=== PATIENT | male | born 1965 | race Two or more races ===

== ENCOUNTER 2021-10-28 21:00 | Inpatient (IN) | payer OTHER ==
[~2021-10-28] VITALS: Ht 152.4 cm; Wt 79.9 kg
[~2021-10-28 21:00] MED LIST: AMLO-258 PO; GABA-1181 PO; METF-1211 PO
[2021-10-28] MEDS ORDERED: 0.9% SODIUM CHLORIDE 10 ML SYRINGE IVP PRN (23:15)
[2021-10-28 23:36] LABS: GLUCOSE,POINT OF CARE 149 MG/DL (70-110)
[2021-10-28 23:37] LABS: BASOPHILS % (AUTO) 0.3 % (0.0-2.0); EOSINOPHILS % (AUTO) 1.9 % (1.0-6.0); HEMATOCRIT 41.9 % (41-53); LYMPHOCYTES # (AUTO) 2.6 K/uL (1.0-4.8); MEAN CORPUSCULAR HGB CONC 33.5 G/dL (31.0-37.0); MEAN CORPUSCULAR VOLUME 83 fL (80-100); MONOCYTES # (AUTO) 0.6 K/uL (0.1-1.0); MONOCYTES % (AUTO) 6.2 % (2.0-9.0); NEUTROPHILS # (AUTO) 6.6 K/uL (1.8-7.7); NEUTROPHILS % (AUTO) 65.6 % (40.0-70.0); PLATELET COUNT (AUTO) 279 K/uL (150-450); RED BLOOD CELL COUNT(AUTO) 5.02 MIL/uL (4.50-5.90); RED CELL DISTRIBUTION WIDTH 14.1 % (11.5-14.5)
[2021-10-28 23:47] LABS: ANION GAP 12 mmol/L (8-16); CALCIUM, TOTAL 8.7 mg/dL (8.8-10.5); CARBON DIOXIDE 21 mmol/L (22-29); CHLORIDE 107 mmol/L (98-107); CREATININE 1.15 mg/dL (0.60-1.30); GLUCOSE,RANDOM 171 mg/dL (70-110); POTASSIUM 3.9 mmol/L (3.5-5.1); SODIUM SERUM 140 mmol/L (136-145); UREA NITROGEN, BLOOD 19 mg/dL (7-18)
[2021-10-28 23:50] LABS: COVID AG,FIA SOURCE NASAL SWAB
[2021-10-28 23:51] LABS: GLOMERULAR FILTR. RATE CALC 55 mL/min (>60)
[2021-10-28 23:52] LABS: PROTHROMBIN TIME 10.9 SEC (9.4-11.6)
[2021-10-28 23:53] LABS: ALANINE AMINOTRANSFERASE 30 U/L (12-78); ALBUMIN 2.8 g/dL (3.4-5.0); ALKALINE PHOSPHATASE 71 U/L (46-116); ASPARTATE AMINOTRANSFERASE 17 U/L (15-37); BILIRUBIN,TOTAL 0.3 mg/dL (0.1-1.0); CREATINE KINASE, TOTAL ONLY 50 U/L (39-308); TOTAL PROTEIN, SERUM 6.7 g/dL (6.4-8.2)
[2021-10-28 23:54] LABS: B-TYPE NATRIURETIC PEPTIDE 40 pg/mL (0-100)
[2021-10-29] MEDS ORDERED: LORazepam 1 MG TABLET PO ONE
[2021-10-29 00:02] LABS: LACTIC ACID 0.7 mmol/L (0.4-2.0)
[2021-10-29 01:02] LABS: THYROID STIMULATING HORMONE 1.12 uIU/mL (0.36-3.74)
[2021-10-29] MEDS ORDERED: SODIUM CHLORIDE 0.9% 1,000 ML IV ONE (01:15)
[2021-10-29] MEDS ORDERED: ONDANSETRON HCL 4 MG/2 ML VIAL IVP PRN (04:00)
[2021-10-29] MEDS: HydrALAZINE HCL 20 MG/ML VIAL IVP PRN ×2 (08:10→14:37)
[2021-10-29] MEDS: HEPARIN SODIUM,PORCINE 5,000 UNITS/ML VIAL SQ SCH ×2 (08:14→16:33)
[2021-10-29] MEDS ORDERED: CloNIDine 0.2 MG/24 HOUR PATCH TD ONE (12:15)
[2021-10-29] MEDS ORDERED: AmLODIPine BESYLATE 10 MG TABLET PO ONE (14:45)
[2021-10-29] MEDS ORDERED: DEXTROSE 50%-WATER 25 GM/50 ML SYRINGE IVP PRN (14:45)
[2021-10-29 16:40] VITALS: BP 150/91
[2021-10-29] MEDS ORDERED: PNEUMOCOCCAL VACCINE POLYVALENT 0.5 ML VIAL [PPSV23] IM. ONE (17:15)
[2021-10-29] MEDS: INSULIN LISPRO 100 UNITS/ML SQ PRN (17:53)
[2021-10-29] MEDS: MetFORMIN HCL 500 MG TABLET PO SCH (20:12)
[2021-10-29 20:49] VITALS: BP 163/96
[2021-10-29] MEDS: LABETALOL HCL 100 MG TABLET PO SCH (21:18)
[2021-10-29 23:05] VITALS: BP 138/84
[2021-10-29 23:36] LABS: GLUCOMETER DEV NAME(LOC) 6N.2; GLUCOSE,POINT OF CARE 178 MG/DL (70-110)
[2021-10-29 23:36] LABS: GLUCOMETER DEV NAME(LOC) 6N.2; GLUCOSE,POINT OF CARE 215 MG/DL (70-110)
[2021-10-30] MEDS: HEPARIN SODIUM,PORCINE 5,000 UNITS/ML VIAL SQ SCH ×4 (00:20→23:03)
[2021-10-30] MEDS: INSULIN LISPRO 100 UNITS/ML SQ PRN ×5 (00:26→20:09)
[2021-10-30 01:50] LABS: GLUCOMETER DEV NAME(LOC) 6N.1; GLUCOSE,POINT OF CARE 188 MG/DL (70-110)
[2021-10-30 05:49] VITALS: BP 122/72
[2021-10-30 06:46] LABS: GLUCOMETER DEV NAME(LOC) 6N.2; GLUCOSE,POINT OF CARE 176 MG/DL (70-110)
[2021-10-30 07:55] VITALS: BP 106/69
[2021-10-30] MEDS: LABETALOL HCL 100 MG TABLET PO SCH ×3 (08:16→20:00)
[2021-10-30] MEDS: MetFORMIN HCL 500 MG TABLET PO SCH ×2 (08:18→20:00)
[2021-10-30 12:21] LABS: GLUCOMETER DEV NAME(LOC) 6N.2; GLUCOSE,POINT OF CARE 200 MG/DL (70-110)
[2021-10-30 16:02] VITALS: BP 154/89
[2021-10-30 17:26] LABS: GLUCOMETER DEV NAME(LOC) 6N.1; GLUCOSE,POINT OF CARE 158 MG/DL (70-110)
[2021-10-30 20:00] VITALS: BP 157/84
[2021-10-31 06:11] VITALS: BP 155/87
[2021-10-31] MEDS: INSULIN LISPRO 100 UNITS/ML SQ PRN ×4 (06:15→21:21)
[2021-10-31 06:27] LABS: GLUCOMETER DEV NAME(LOC) 6N.2; GLUCOSE,POINT OF CARE 209 MG/DL (70-110)
[2021-10-31 06:55] LABS: GLUCOMETER DEV NAME(LOC) 6N.2; GLUCOSE,POINT OF CARE 170 MG/DL (70-110)
[2021-10-31 07:54] VITALS: BP 145/83
[2021-10-31] MEDS: HEPARIN SODIUM,PORCINE 5,000 UNITS/ML VIAL SQ SCH ×2 (08:33→16:06)
[2021-10-31] MEDS: MetFORMIN HCL 500 MG TABLET PO SCH ×2 (08:33→21:19)
[2021-10-31] MEDS: LABETALOL HCL 100 MG TABLET PO SCH ×3 (08:33→21:19)
[2021-10-31 12:32] LABS: GLUCOMETER DEV NAME(LOC) 6N.2; GLUCOSE,POINT OF CARE 182 MG/DL (70-110)
[2021-10-31 16:04] VITALS: BP 152/80
[2021-10-31 17:31] LABS: GLUCOMETER DEV NAME(LOC) 6N.1; GLUCOSE,POINT OF CARE 145 MG/DL (70-110)
[2021-10-31 20:28] VITALS: BP 158/82
[2021-10-31 23:50] LABS: GLUCOMETER DEV NAME(LOC) 6N.1; GLUCOSE,POINT OF CARE 208 MG/DL (70-110)
[2021-11-01] MEDS: HEPARIN SODIUM,PORCINE 5,000 UNITS/ML VIAL SQ SCH ×4 (00:26→23:04)
[2021-11-01 03:49] VITALS: BP 175/94
[2021-11-01] MEDS: HydrALAZINE HCL 20 MG/ML VIAL IVP PRN ×2 (03:53→17:10)
[2021-11-01] MEDS: INSULIN LISPRO 100 UNITS/ML SQ PRN ×4 (05:48→20:09)
[2021-11-01 08:01] VITALS: BP 151/85
[2021-11-01] MEDS: ACETAMINOPHEN 325 MG TABLET PO PRN (08:42)
[2021-11-01] MEDS: MetFORMIN HCL 500 MG TABLET PO SCH ×2 (08:43→20:09)
[2021-11-01] MEDS: SitaGLIPtin PHOSPHATE 25 MG TABLET PO SCH (08:43)
[2021-11-01] MEDS: LABETALOL HCL 100 MG TABLET PO SCH ×2 (08:43→15:34)
[2021-11-01] MEDS ORDERED: AmLODIPine BESYLATE 10 MG TABLET PO ONE (12:00)
[2021-11-01 12:30] VITALS: BP 152/97
[2021-11-01 13:01] LABS: GLUCOMETER DEV NAME(LOC) 6N.1; GLUCOSE,POINT OF CARE 167 MG/DL (70-110)
[2021-11-01 13:01] LABS: GLUCOMETER DEV NAME(LOC) 6N.2; GLUCOSE,POINT OF CARE 176 MG/DL (70-110)
[2021-11-01 15:32] VITALS: BP 175/92
[2021-11-01 17:08] VITALS: BP 184/101
[2021-11-01 21:01] LABS: GLUCOMETER DEV NAME(LOC) 6N.2; GLUCOSE,POINT OF CARE 154 MG/DL (70-110)
[2021-11-01 21:21] LABS: APPEARANCE,URINE CLEAR (CLEAR); BILIRUBIN,URINE NEGATIVE (NEGATIVE); GLUCOSE, URINE (UA) TRACE mg/dL (NEGATIVE); KETONES,URINE NEGATIVE (NEGATIVE); LEUKOCYTE ESTERASE ,URINE NEGATIVE (NEGATIVE); NITRATE,URINE NEGATIVE (NEGATIVE); OCCULT BLOOD,URINE NEGATIVE (NEGATIVE); PH,URINE 7.5 (5.0-8.0); PROTEIN,URINE 300-600,SEE CONFIRM mg/dL (NEGATIVE); SPECIFIC GRAVITIY, URINE 1.017 (1.003-1.030); UROBILINOGEN,URINE <=1.0 mg/dL (<=1.0)
[2021-11-01 21:26] VITALS: BP 149/85
[2021-11-01 21:33] LABS: SULFOSALICYLIC ACID,URINE 1+ (Negative)
[2021-11-01 21:34] LABS: BACTERIA,URINE None Seen /HPF (None Seen); RBC,URINE None Seen /HPF (0-2); WBC,URINE 0-2 /HPF (0-5)
[2021-11-02 04:30] VITALS: BP 134/80
[2021-11-02 05:01] LABS: GLUCOMETER DEV NAME(LOC) 6N.1; GLUCOSE,POINT OF CARE 115 MG/DL (70-110)
[2021-11-02] MEDS: INSULIN LISPRO 100 UNITS/ML SQ PRN ×4 (05:42→20:48)
[2021-11-02 05:56] LABS: GLUCOMETER DEV NAME(LOC) 6N.1; GLUCOSE,POINT OF CARE 233 MG/DL (70-110)
[2021-11-02 07:37] VITALS: BP 136/80
[2021-11-02] MEDS: MetFORMIN HCL 500 MG TABLET PO SCH ×2 (08:26→19:44)
[2021-11-02] MEDS: SitaGLIPtin PHOSPHATE 25 MG TABLET PO SCH (08:26)
[2021-11-02] MEDS: AmLODIPine BESYLATE 10 MG TABLET PO SCH (08:26)
[2021-11-02] MEDS: HEPARIN SODIUM,PORCINE 5,000 UNITS/ML VIAL SQ SCH ×3 (08:26→23:10)
[2021-11-02] MEDS ORDERED: QUEtiapine FUMARATE 25 MG TABLET PO PRN (10:45)
[2021-11-02 12:46] LABS: GLUCOMETER DEV NAME(LOC) 6N.2; GLUCOSE,POINT OF CARE 250 MG/DL (70-110)
[2021-11-02 15:53] VITALS: BP 123/67
[2021-11-02 19:35] VITALS: BP 177/92
[2021-11-02] MEDS: ACETAMINOPHEN 325 MG TABLET PO PRN (19:44)
[2021-11-02 21:36] LABS: GLUCOMETER DEV NAME(LOC) 6N.1; GLUCOSE,POINT OF CARE 147 MG/DL (70-110)
[2021-11-02 21:36] LABS: GLUCOMETER DEV NAME(LOC) 6N.2; GLUCOSE,POINT OF CARE 239 MG/DL (70-110)
[2021-11-03 04:12] VITALS: BP 145/87
[2021-11-03] MEDS: ACETAMINOPHEN 325 MG TABLET PO PRN (04:14)
[2021-11-03] MEDS: INSULIN LISPRO 100 UNITS/ML SQ PRN ×4 (06:06→20:07)
[2021-11-03 08:06] VITALS: BP 122/70
[2021-11-03] MEDS: HEPARIN SODIUM,PORCINE 5,000 UNITS/ML VIAL SQ SCH ×3 (08:27→23:26)
[2021-11-03] MEDS: AmLODIPine BESYLATE 10 MG TABLET PO SCH (08:27)
[2021-11-03] MEDS: MetFORMIN HCL 500 MG TABLET PO SCH ×2 (08:27→20:03)
[2021-11-03] MEDS: SitaGLIPtin PHOSPHATE 25 MG TABLET PO SCH (08:27)
[2021-11-03 15:33] VITALS: BP 133/84
[2021-11-03 15:51] LABS: GLUCOMETER DEV NAME(LOC) 6N.2; GLUCOSE,POINT OF CARE 209 MG/DL (70-110)
[2021-11-03 15:51] LABS: GLUCOMETER DEV NAME(LOC) 6N.1; GLUCOSE,POINT OF CARE 191 MG/DL (70-110)
[2021-11-03 19:15] VITALS: BP 143/90
[2021-11-03 20:01] LABS: GLUCOMETER DEV NAME(LOC) 6N.2; GLUCOSE,POINT OF CARE 209 MG/DL (70-110)
[2021-11-03 22:01] LABS: GLUCOMETER DEV NAME(LOC) 6N.2; GLUCOSE,POINT OF CARE 199 MG/DL (70-110)
[2021-11-04 04:52] VITALS: BP 143/82
[2021-11-04] MEDS: INSULIN LISPRO 100 UNITS/ML SQ PRN ×4 (05:49→20:13)
[2021-11-04 07:01] LABS: GLUCOMETER DEV NAME(LOC) 6N.2; GLUCOSE,POINT OF CARE 211 MG/DL (70-110)
[2021-11-04 08:01] VITALS: BP 131/79
[2021-11-04] MEDS: AmLODIPine BESYLATE 10 MG TABLET PO SCH (08:34)
[2021-11-04] MEDS: HEPARIN SODIUM,PORCINE 5,000 UNITS/ML VIAL SQ SCH ×3 (08:34→23:21)
[2021-11-04] MEDS: SitaGLIPtin PHOSPHATE 25 MG TABLET PO SCH (08:34)
[2021-11-04] MEDS: MetFORMIN HCL 500 MG TABLET PO SCH ×2 (08:34→20:22)
[2021-11-04 12:56] LABS: GLUCOMETER DEV NAME(LOC) 6N.1; GLUCOSE,POINT OF CARE 176 MG/DL (70-110)
[2021-11-04 15:54] VITALS: BP 140/78
[2021-11-04 18:56] LABS: GLUCOMETER DEV NAME(LOC) 6N.1; GLUCOSE,POINT OF CARE 182 MG/DL (70-110)
[2021-11-04 20:49] VITALS: BP 146/78
[2021-11-05 03:41] LABS: GLUCOMETER DEV NAME(LOC) 6N.2; GLUCOSE,POINT OF CARE 249 MG/DL (70-110)
[2021-11-05 05:10] VITALS: BP 124/66
[2021-11-05] MEDS: INSULIN LISPRO 100 UNITS/ML SQ PRN ×4 (06:31→20:13)
[2021-11-05 08:08] VITALS: BP 139/79
[2021-11-05 08:46] LABS: GLUCOMETER DEV NAME(LOC) 6N.2; GLUCOSE,POINT OF CARE 191 MG/DL (70-110)
[2021-11-05] MEDS: MetFORMIN HCL 500 MG TABLET PO SCH ×2 (08:50→20:08)
[2021-11-05] MEDS: SitaGLIPtin PHOSPHATE 25 MG TABLET PO SCH (08:50)
[2021-11-05] MEDS: HEPARIN SODIUM,PORCINE 5,000 UNITS/ML VIAL SQ SCH ×3 (08:50→23:17)
[2021-11-05] MEDS: AmLODIPine BESYLATE 10 MG TABLET PO SCH (08:50)
[2021-11-05 13:20] LABS: GLUCOMETER DEV NAME(LOC) 6N.1; GLUCOSE,POINT OF CARE 184 MG/DL (70-110)
[2021-11-05 16:12] VITALS: BP 134/82
[2021-11-05 18:51] LABS: GLUCOMETER DEV NAME(LOC) 6N.1; GLUCOSE,POINT OF CARE 174 MG/DL (70-110)
[2021-11-05 20:49] VITALS: BP 152/77
[2021-11-05 21:36] LABS: GLUCOMETER DEV NAME(LOC) 6N.2; GLUCOSE,POINT OF CARE 212 MG/DL (70-110)
[2021-11-06] MEDS: INSULIN LISPRO 100 UNITS/ML SQ PRN ×4 (05:08→20:18)
[2021-11-06 05:21] VITALS: BP 128/79
[2021-11-06 06:55] LABS: BASOPHILS % (AUTO) 0.4 % (0.0-2.0); EOSINOPHILS % (AUTO) 3.6 % (1.0-6.0); HEMATOCRIT 36.5 % (41-53); HEMOGLOBIN 12.5 g/dL (13.5-17.5); LYMPHOCYTES % (AUTO) 32.2 % (22.0-44.0); MEAN CORPUSCULAR HEMOGLOBIN 28.1 pg (26.0-34.0); MEAN CORPUSCULAR HGB CONC 34.1 G/dL (31.0-37.0); MEAN CORPUSCULAR VOLUME 82 fL (80-100); MONOCYTES % (AUTO) 10.5 % (2.0-9.0); NEUTROPHILS # (AUTO) 4.9 K/uL (1.8-7.7); NEUTROPHILS % (AUTO) 53.3 % (40.0-70.0); PLATELET COUNT (AUTO) 287 K/uL (150-450); RED BLOOD CELL COUNT(AUTO) 4.43 MIL/uL (4.50-5.90); RED CELL DISTRIBUTION WIDTH 13.8 % (11.5-14.5)
[2021-11-06 07:01] LABS: GLUCOMETER DEV NAME(LOC) 6N.2; GLUCOSE,POINT OF CARE 193 MG/DL (70-110)
[2021-11-06 07:19] LABS: ANION GAP 13 mmol/L (8-16); CALCIUM, TOTAL 8.8 mg/dL (8.8-10.5); CARBON DIOXIDE 21 mmol/L (22-29); CHLORIDE 101 mmol/L (98-107); CREATININE 1.05 mg/dL (0.60-1.30); GLOMERULAR FILTR. RATE CALC > 60 mL/min (>60); GLUCOSE,RANDOM 183 mg/dL (70-110); POTASSIUM 4.7 mmol/L (3.5-5.1); SODIUM SERUM 135 mmol/L (136-145); UREA NITROGEN, BLOOD 26 mg/dL (7-18)
[2021-11-06 07:24] VITALS: BP 137/84
[2021-11-06] MEDS: HEPARIN SODIUM,PORCINE 5,000 UNITS/ML VIAL SQ SCH ×2 (09:52→16:29)
[2021-11-06] MEDS: SitaGLIPtin PHOSPHATE 25 MG TABLET PO SCH (09:53)
[2021-11-06] MEDS: MetFORMIN HCL 500 MG TABLET PO SCH ×2 (09:53→20:19)
[2021-11-06] MEDS: AmLODIPine BESYLATE 10 MG TABLET PO SCH (09:53)
[2021-11-06 12:46] LABS: GLUCOMETER DEV NAME(LOC) 6N.2; GLUCOSE,POINT OF CARE 179 MG/DL (70-110)
[2021-11-06 15:45] VITALS: BP 140/85
[2021-11-06 19:40] VITALS: BP 137/82
[2021-11-06 20:06] LABS: GLUCOMETER DEV NAME(LOC) 6N.2; GLUCOSE,POINT OF CARE 174 MG/DL (70-110)
[2021-11-06 22:46] LABS: GLUCOMETER DEV NAME(LOC) 6S.1B; GLUCOSE,POINT OF CARE 180 MG/DL (70-110)
[2021-11-07] MEDS: HEPARIN SODIUM,PORCINE 5,000 UNITS/ML VIAL SQ SCH ×2 (00:40→08:32)
[2021-11-07 04:10] VITALS: BP 141/82
[2021-11-07] MEDS: INSULIN LISPRO 100 UNITS/ML SQ PRN ×2 (05:34→12:14)
[2021-11-07 07:46] LABS: GLUCOMETER DEV NAME(LOC) 6N.2; GLUCOSE,POINT OF CARE 191 MG/DL (70-110)
[2021-11-07 08:07] VITALS: BP 134/78
[2021-11-07] MEDS: SitaGLIPtin PHOSPHATE 25 MG TABLET PO SCH (08:31)
[2021-11-07] MEDS: MetFORMIN HCL 500 MG TABLET PO SCH (08:31)
[2021-11-07] MEDS: AmLODIPine BESYLATE 10 MG TABLET PO SCH (08:32)
[2021-11-07] MEDS ORDERED: CLON0.3T PO (11:43)
[2021-11-07] MEDS ORDERED: HEPA500018 SQ (11:45)
[2021-11-07] MEDS ORDERED: ACET-2247 PO (11:47)
[2021-11-07] MEDS ORDERED: SITA25 PO (11:47)
[2021-11-07] MEDS ORDERED: INSU100V SQ (11:48)
[2021-11-07] MEDS ORDERED: QUET25TA PO (11:49)
[2021-11-07 13:06] LABS: GLUCOMETER DEV NAME(LOC) 6N.2; GLUCOSE,POINT OF CARE 209 MG/DL (70-110)
== END 2021-11-07 16:10 | DRG 421 ==
LOC: EDBD 21:04 → EMS 21:04 → 6S 10-29 15:35
PROVIDERS: ADMIT Hospitalist; ATTEND Hospitalist
DX: R62.7 Adult failure to thrive (principal); G93.40 Encephalopathy, unspecified; E43 Unspecified severe protein-calorie malnutrition; E11.51 Type 2 diabetes mellitus with diabetic peripheral angiopathy without gangrene; I16.0 Hypertensive urgency; I10 Essential (primary) hypertension; E11.65 Type 2 diabetes mellitus with hyperglycemia; Z89.512 Acquired absence of left leg below knee; Z82.3 Family history of stroke; Z89.511 Acquired absence of right leg below knee; I69.359 Hemiplegia and hemiparesis following cerebral infarction affecting unspecified side; F20.9 Schizophrenia, unspecified; Z91.19 Patient's noncompliance with other medical treatment and regimen; Z20.822 Contact with and (suspected) exposure to COVID-19; Z68.34 Body mass index [BMI] 34.0-34.9, adult
CPT/HCPCS: 70450; 71045; 80048; 80053; 81001; 81002; 81003; 82550; 82962; 83605; 83880; 84145; 84443; 84484; 85025; 85610; 85730; 87040; 90732; 93005; 97116; 97162; 97165; 97530; 97535; 99285; J0360; J1644; J7030; 36415-L1; 36415-TC

== ENCOUNTER 2022-01-01 09:45 | Emergency (ER) | payer OTHER ==
[~2022-01-01] VITALS: Ht 157.5 cm; Wt 79.9 kg
[~2022-01-01 09:45] MED LIST changes: +ACET-2247 PO; +CLON0.3T PO; +HEPA500018 SQ; +INSU100V SQ; +QUET25TA PO; +SITA25 PO
[2022-01-01 10:12] LABS: BASOPHILS % (AUTO) 0.3 % (0.0-2.0); EOSINOPHILS % (AUTO) 2.4 % (1.0-6.0); HEMOGLOBIN 14.1 g/dL (13.5-17.5); LYMPHOCYTES # (AUTO) 3.1 K/uL (1.0-4.8); LYMPHOCYTES % (AUTO) 34.8 % (22.0-44.0); MEAN CORPUSCULAR HEMOGLOBIN 28.4 pg (26.0-34.0); MEAN CORPUSCULAR HGB CONC 33.6 G/dL (31.0-37.0); MEAN CORPUSCULAR VOLUME 84 fL (80-100); MONOCYTES # (AUTO) 0.5 K/uL (0.1-1.0); MONOCYTES % (AUTO) 5.7 % (2.0-9.0); NEUTROPHILS # (AUTO) 5.2 K/uL (1.8-7.7); NEUTROPHILS % (AUTO) 56.8 % (40.0-70.0); PLATELET COUNT (AUTO) 350 K/uL (150-450); RED BLOOD CELL COUNT(AUTO) 4.98 MIL/uL (4.50-5.90)
[2022-01-01 10:28] LABS: INR 0.9 (0.9-1.1); PROTHROMBIN TIME 10.1 SEC (9.4-11.6)
[2022-01-01 10:32] LABS: B-TYPE NATRIURETIC PEPTIDE 12 pg/mL (0-100)
[2022-01-01 10:36] LABS: ANION GAP 7 mmol/L (8-16); CALCIUM, TOTAL 9.2 mg/dL (8.8-10.5); CARBON DIOXIDE 24 mmol/L (22-29); CHLORIDE 103 mmol/L (98-107); CREATININE 1.08 mg/dL (0.60-1.30); GLOMERULAR FILTR. RATE CALC > 60 mL/min (>60); GLUCOSE,RANDOM 306 mg/dL (70-110); POTASSIUM 4.4 mmol/L (3.5-5.1); SODIUM SERUM 134 mmol/L (136-145); UREA NITROGEN, BLOOD 29 mg/dL (7-18)
[2022-01-01 10:36] LABS: APPEARANCE,URINE CLEAR (CLEAR); BILIRUBIN,URINE NEGATIVE (NEGATIVE); GLUCOSE, URINE (UA) >=1000 mg/dL (NEGATIVE); KETONES,URINE NEGATIVE (NEGATIVE); LEUKOCYTE ESTERASE ,URINE SMALL (NEGATIVE); NITRATE,URINE POSITIVE (NEGATIVE); OCCULT BLOOD,URINE TRACE (NEGATIVE); PROTEIN,URINE 300-600,SEE CONFIRM mg/dL (NEGATIVE); SPECIFIC GRAVITIY, URINE 1.012 (1.003-1.030); UROBILINOGEN,URINE <=1.0 mg/dL (<=1.0)
[2022-01-01] MEDS ORDERED: CHOL25TA4 PO (10:39)
[2022-01-01 10:43] LABS: ALANINE AMINOTRANSFERASE 17 U/L (12-78); ALKALINE PHOSPHATASE 88 U/L (46-116); ASPARTATE AMINOTRANSFERASE 11 U/L (15-37); BILIRUBIN,TOTAL 0.2 mg/dL (0.1-1.0); CREATINE KINASE, TOTAL ONLY 15 U/L (39-308); TOTAL PROTEIN, SERUM 7.8 g/dL (6.4-8.2)
[2022-01-01 10:50] LABS: BACTERIA,URINE Few /HPF (None Seen); RBC,URINE None Seen /HPF (0-2); SQUAMOUS EPITHELIAL CELL,UR Few /LPF (None Seen); SULFOSALICYLIC ACID,URINE 3+ (Negative); WBC,URINE 0-2 /HPF (0-5)
[2022-01-01 10:51] LABS: YEAST,URINE Few /HPF (None Seen)
[2022-01-01] MEDS ORDERED: CefTRIAXone SODIUM 500 MG in DEXTROSE 5%-WATER 50 ML IV ONE (13:00)
[2022-01-01 15:48] VITALS: BP 167/91
== END 2022-01-01 16:03 | disposition home or self-care (01) ==
LOC: EMS 09:57
DX: R07.9 Chest pain, unspecified (principal); N39.0 Urinary tract infection, site not specified; E11.9 Type 2 diabetes mellitus without complications; F20.9 Schizophrenia, unspecified; I10 Essential (primary) hypertension; R47.01 Aphasia
CPT/HCPCS: 99285; 96365; 70450; 71045; 80053; 81001; 81002; 82550; 83880; 84484; 85025; 85610; 85730; 36415; 93005; J0696; J7060